=== PATIENT | female | born 1980 | race Caucasian/White ===

== ENCOUNTER 2016-11-28 15:05 | Emergency (ER) | payer OTHER, BC ==
[~2016-11-28] VITALS: Ht 152.4 cm; Wt 59.0 kg
[~2016-11-28 15:05] MED LIST: SERT-132 PO
[2016-11-28 15:09] VITALS: BP 134/74; PULSE 67; RESP 15; TEMP 97.8; O2SAT 100
[2016-11-28] MEDS ORDERED: PROPARACAINE HCL 0.5% OPHT SOLN 15 ML BTL EACH EYE ONE (16:15)
[2016-11-28] MEDS ORDERED: OCUF0.3D RIGHT EYE (16:34)
[2016-11-28] MEDS ORDERED: DICL75TA PO (16:34)
--- NOTE | 2016-11-28 16:39 | PD ---
HPI Chief Complaint: Eye Problems/Injury Time Seen by Provider: 16:34 Travel History International Travel<30 days: No Contact w/Intl Traveler<30days: No Traveled to known affect area: No History of Present Illness HPI 36-year-old female that presents to the ED for evaluation of right eye pain. Per patient she's had this for about 6 hours. Per patient she uses contacts and she works some tonight to sleep with her. Per patient she usually slept with them. Today she woke up with some pain and she took off her contact. Per patient he feels like there is something in her eye. She denies any blurry vision but states having some tearing. She denies any fevers chills or sweats. Per patient the pain is 10 out of 10. Feels like a burning sensation. Denies any injury or anything in her eye that she actually felt getting in. She has not wore contacts since. She has an eye doctor. She denies any headache. No discharge. She's never had anything like this before. [facility] Past Medical History Anxiety: Yes Diminished Hearing: No ?: Not LMP: NOV 09 - NOV 15 2016 Past Surgical History Other Surgery: Yes (BREAST REDUCTION, ADNOIDS REMOVED) Social History Alcohol Use: No Tobacco Use: No Substance Use: No Allergies-Medications (Allergen,Severity, Reaction): Coded Allergies: Ceclor (Verified Allergy, Unknown, 02/23/16) CHILD Penicillin (Verified Allergy, Unknown, 02/23/16) CHILD Reported Meds & Prescriptions Reported Meds & Active Scripts Active No Active Prescriptions or Reported Medications Review of Systems General / Constitutional: No: Fever, Chills, Weight Gain, Weight Loss, Other Eyes: Positive: Photophobia, Drainage, Redness, Foreign Body Sensation, Pain, Tearing, No: Diploplia, Blurred Vision, Blind Spots, Visual changes, Blindness , Other HENT: No: Headaches, Vertigo, Lightheadedness, Sore Throat, Rhinitis, Rhinorrhea, Congestion, Nosebleed, Neck Stiffness, Neck Pain, Masses, Gingival Bleeding, Dental Difficulties, Ear Discharge, Earache, Other Cardiovascular: No: Chest Pain or Discomfort, Palpitations, Irregular Rhythm, Tachycardia, Diaphoresis, Syncope, Dyspnea on exertion, Varicosities, Edema, Cyanosis, Varicosities, Phlebitis, Claudication, Other Respiratory: No: Cough, Shortness of Breath, Wheezing, Sneezing, Orthopnea, Hemoptysis, Stridor, Night Sweats, Pleuritic Pain, Other Gastrointestinal: No: Nausea, Vomiting, Diarrhea, Abdominal Pain, Hematemesis, Hematochezia, Constipation, Changes in Bowel Habits, Indigestion, Dysphagia, Loss of Appetite, Other Genitourinary: No: Urgency, Frequency, Dysuria, Nocturia, Hematuria, Decreased Urinary Output, Oliguria, Hesitancy, Dribbling, Incontinence, Pelvic Pain, Flank Pain, Dyspareunia, Discharge, Dysmenorrhea, Menorrhagia, Metorrhagia, Vaginal Bleeding, Other Musculoskeletal: No: Myalgias, Arthralgias, Limited ROM, Weakness, Cramping, Edema, Pain, Atrophy, Other Skin: No Rash, No Itching, No Dryness, No Lumps, No Hives, No Change in Pigmentation, No Change in nails, No Alopecia, No Lesions, No Breast Lumps, No Breast Tenderness, No Breast Swelling, No Other Neurologic: No: Weakness, Dizziness, Syncope, Focal Abnormalities, Coordination Problem, Tremor, Ataxia, Headache, Change in Mentation, Slurred Speech, Paresthesia, Incontinence, Seizures, Sensory Disturbance, Other Psychiatric: No: Anxiety, Depression, Suicidal Ideations, Disorder of Thought, Mood Disorder, Substance Abuse, Homicidal Ideation, Other Endocrine: No: Heat Intolerance, Cold Intolerance, Polyuria, Polydipsia, Other Hematologic/Lymphatic: No: Easy Bruising, Lymph Node Enlargement, Other Physical Exam Narrative GENERAL: SKIN: Warm and dry. HEAD: Atraumatic. Normocephalic. EYES: Pupils equal and round 4 mm reactive to light and accommodation. No scleral icterus. No injection or drainage. EOM intact bilaterally. No obvious sign of foreign body with inversion of the eyelids. Patient does have irritation of the conjunctiva. No obvious discharge noted. Fluorescein stain revealed no sign of foreign body or abrasion or ulceration. Ophthalmic exam reveals some papilledema or vessel disease. ENT: No nasal bleeding or discharge. Mucous membranes pink and moist. Tongue is midline. No uvula deviation. NECK: Trachea midline. No JVD. CARDIOVASCULAR: Regular rate and rhythm. RESPIRATORY: No accessory muscle use. Clear to auscultation. Breath sounds equal bilaterally. GASTROINTESTINAL: Abdomen soft, non-tender, nondistended. Hepatic and splenic margins not palpable. MUSCULOSKELETAL: Extremities without clubbing, cyanosis, or edema. No obvious deformities. NEUROLOGICAL: Awake and alert. No obvious cranial nerve deficits. Motor grossly within normal limits. Five out of 5 muscle strength in the arms and legs. Normal speech. PSYCHIATRIC: Appropriate mood and affect; insight and judgment normal. Data Data Last Documented VS Vital Signs Date Time Temp Pulse Resp B/P Pulse Ox O2 Delivery O2 Flow Rate FiO2 11/28/16 15:09 97.8 67 15 134/74 100 Orders Proparacaine 0.5% Opth Soln (Alcaine 0.5 (11/28/16 16:15) [facility] Medical Decision Making Medical Screen Exam Complete: Yes Emergency Medical Condition: Yes Medical Record Reviewed: Yes Differential Diagnosis Conjunctivitis versus glaucoma versus eye irritation Narrative Course 36-year-old female that presents to the ED for evaluation of right eye pain. Patient was properly examined and was found to have signs and symptoms consistent with likely conjunctivitis with possible ulceration secondary to contact wearer and sleeping on the eye. I do not see any sign of acute injury to the eye at this time. I do not believe this is glaucoma. Patient had good relief with proparacaine drops. Patient will be treated for this with diclofenac sodium and ofloxacin to cover for pseudomonas. Patient was instructed to follow with eye doctor this week. See ED if any worsening symptoms. Ice or warm compresses. Diagnosis Primary Impression: Corneal ulcer of right eye Additional Impression: Conjunctivitis Qualified Code: H10.31 - Acute bacterial conjunctivitis of right eye Patient Instructions: General Instructions Additional Instructions: Apply drops as prescribed. Ice or warm compresses as needed to the eye. Keep by close to help with heel. Do not wear contacts for 2 weeks. Follow with eye doctor this week. See ED for any worsening symptoms. Symptoms should improve in the next 2 days. Med/Other Pt SpecificInfo: Prescription(s) given Scripts Diclofenac Sodium DR 75 Mg Tabdr75 Mg PO BID PRN (PAIN SCALE 1 TO 10) #20 TAB Prov:Janet Sahu MD 11/28/16 Ofloxacin Opth Drops (Ocuflox Opth Drops)0.3 % Drops1 Drop RIGHT EYE Q4HR #1 BOTTLE Ref 0 Prov:Janet Sahu MD 11/28/16 Disposition: 01 DISCHARGE HOME Condition: Stable Mat Naik PA Nov 28, 2016 16:39
== END 2016-11-28 17:02 | disposition home or self-care (01) ==
LOC: NEPB 15:05
DX: H16.001 Unspecified corneal ulcer, right eye (principal); H10.31 Unspecified acute conjunctivitis, right eye; Z86.59 Personal history of other mental and behavioral disorders
CPT/HCPCS: 99283

== ENCOUNTER 2017-02-04 17:34 | Emergency (ER) | payer OTHER, BC ==
[~2017-02-04 17:34] MED LIST changes: +DICL75TA PO; +OCUF0.3D RIGHT EYE; -SERT-132 PO
[2017-02-04 17:36] VITALS: BP 114/57; PULSE 69; RESP 16; TEMP 98.6; O2SAT 99
--- NOTE | 2017-02-04 17:40 | PD ---
Physical Exam Date Seen by Provider: Feb 04, 2017 Time Seen by Provider: 17:38 Narrative 37 yo female here for evaluation of possible lice. Per patient she has been staying in a house with kids recently diagnosed with lice. Concerned she might have it as well. No pain. Itchy on scalp. No other complaints. Vitals sign stable. Patient awaiting bed placement. Data Data Last Documented VS Vital Signs Date Time Temp Pulse Resp B/P Pulse Ox O2 Delivery O2 Flow Rate FiO2 02/04/17 17:36 98.6 69 16 114/57 99 Room Air [facility] Medical Record Reviewed: Yes Supervised Visit with ALICJA: No Mat Naik Feb 04, 2017 17:40
--- NOTE | 2017-02-04 18:13 | PD ---
HPI Chief Complaint: Medical Clearance Time Seen by Provider: 18:10 Travel History International Travel<30 days: No Contact w/Intl Traveler<30days: No Traveled to known affect area: No History of Present Illness HPI 37-year-old female presents to emergency department wanting to get checked for lice. She was told today that her daughter's friend was checked by school today and was told she had lice. The patient's that she's been hanging out with her daughter's friend for the last 2 days. She reports having an itchy scalp which is normal for her because she has dry scalp. She went to the lice clinic and they were closed. Denies fever, vomiting. She has allergies to Ceclor and penicillin. She has no other medical complaints. No other modifying factors or associated signs and symptoms. History Social History Alcohol Use: No Tobacco Use: No Allergies-Medications (Allergen,Severity, Reaction): Coded Allergies: Ceclor (Verified Allergy, Unknown, 02/23/16) CHILD Penicillin (Verified Allergy, Unknown, 02/23/16) CHILD Reported Meds & Prescriptions Reported Meds & Active Scripts Active Diclofenac Sodium DR (Diclofenac Sodium) 75 Mg Tabdr 75 Mg PO BID PRN Ocuflox Opth Drops (Ofloxacin Opth Drops) 0.3 % Drops 1 Drop RIGHT EYE Q4HR Review of Systems Except as stated in HPI: all other systems reviewed are Neg Physical Exam Narrative GENERAL: Well-nourished, well-developed female patient, in no acute distress; afebrile, nontoxic-appearing SKIN: Warm and dry. HEAD: Atraumatic. Normocephalic. EYES: Pupils equal and round. No scleral icterus. No injection or drainage. ENT: Mucosa pink and moist. Airway patent. NECK: Trachea midline. CARDIOVASCULAR: Regular rate. RESPIRATORY: No accessory muscle use. GASTROINTESTINAL: Flat. MUSCULOSKELETAL: No obvious deformities. No clubbing. No cyanosis. No edema. NEUROLOGICAL: Awake and alert. Oriented 3. No obvious cranial nerve deficits. Motor grossly within normal limits. Normal speech. PSYCHIATRIC: Appropriate mood and affect; insight and judgment normal. Data Data Last Documented VS Vital Signs Date Time Temp Pulse Resp B/P Pulse Ox O2 Delivery O2 Flow Rate FiO2 02/04/17 17:36 98.6 69 16 114/57 99 Room Air [facility] Medical Screen Exam Complete: Yes Emergency Medical Condition: No Differential Diagnosis Medical clearance, lice, lice check Narrative Course 37-year-old female requesting to be checked for lice. She has information to the lice clinic. Vital signs are stable and the patient is stable for outpatient follow-up and treatment. The patient has no urgent or emergent medical complaints. There is no emergent or urgent medical need at this time. I instructed the patient to follow up with their primary care provider. A medical screening exam was performed: At the time of evaluation the presenting medical condition was determined not to be of an emergent nature. The patient was given the option of receiving additional care, but declined. Patient was given options for additional community resources from which to obtain care. The Patient Has Been advised to seek medical attention for their presenting complaint. The patient has been advised to return to the ER at any time if an emergent condition develops. Primary Impression: Encounter for medical screening examination Condition: Stable Leti Heck Feb 04, 2017 18:12
== END 2017-02-04 18:25 | disposition left against medical advice (07) ==
LOC: NEPK 17:34
DX: L29.8 Other pruritus (principal)
CPT/HCPCS: 99281